=== PATIENT | female | born 2000 | race Caucasian/White ===

== ENCOUNTER 2022-02-10 16:53 | Emergency (ER) | payer OTHER ==
[2022-02-10] MEDS ORDERED: Acetaminophen 500 MG TAB ONE (17:31)
[2022-02-10] MEDS ORDERED: Ketorolac Tromethamine 30 MG/ML VIAL ONE (18:20)
== END 2022-02-10 18:38 | disposition home or self-care (01) ==
LOC: ERS 16:53
DX: S16.1XXA Strain of muscle, fascia and tendon at neck level, initial encounter (principal); R03.0 Elevated blood-pressure reading, without diagnosis of hypertension; V43.62XA Car passenger injured in collision with other type car in traffic accident, initial encounter
CPT/HCPCS: 72040; 96372; J1885